=== PATIENT | male | born 1965 | race Caucasian/White ===

== ENCOUNTER 2022-08-25 20:31 | Inpatient (IN) | payer OTHER ==
[~2022-08-25] VITALS: Ht 182.9 cm; Wt 118.0 kg
[2022-08-25 20:46] VITALS: BP_SYST 120
--- NOTE | 2022-08-25 20:54 | NUR ---
# 18 gauge angiocath placed to LAC. Use of asceptic technique. Opsite placed over site. Blood return noted. Blood for lab drawn from site. Flushed with 10 cc of normal saline. No evidence of infiltration noted. Patient tolerated well.
[2022-08-25 21:03] LABS: BASOPHILS # (AUTO) 0.1 K/uL (0.0-0.2); BASOPHILS % (AUTO) 0.8 % (0.0-2.0); EOSINOPHILS # (AUTO) 0.1 K/uL (0.0-0.4); EOSINOPHILS % (AUTO) 1.1 % (0.0-4.0); HEMATOCRIT 28.1 % (36-54); HEMOGLOBIN 9.3 g/dL (14.0-18.0); LYMPHOCYTES # (AUTO) 0.7 K/uL (1.0-5.5); LYMPHOCYTES % (AUTO) 9.5 % (20.5-51.5); MEAN CORPUSCULAR HEMOGLOBIN 31 pg (27-31); MEAN CORPUSCULAR HGB CONC 33 % (32-36); MEAN CORPUSCULAR VOLUME 93 fL (79.0-98.0); MONOCYTES # (AUTO) 0.4 K/uL (0.0-1.0); MONOCYTES % (AUTO) 5.9 % (1.7-9.3); NEUTROPHILS # (AUTO) 5.8 K/uL (1.8-7.7); NEUTROPHILS % (AUTO) 82.7 % (40.0-70.0); PLATELET COUNT (AUTO) 161 K/uL (130-430); RED BLOOD CELL COUNT(AUTO) 3.01 MIL/uL (4.2-6.2); RED CELL DISTRIBUTION WIDTH 16.9 % (9.0-15.0); WHITE BLOOD COUNT (AUTO) 7.1 K/uL (4.8-10.8)
[2022-08-25 21:10] LABS: ANION GAP 15 (5-15); CHLORIDE 98 mmol/L (98-107); GLUCOSE 140 mg/dL (70-99); UREA NITROGEN, BLOOD 68 mg/dL (8-21)
[2022-08-25 21:12] LABS: GFR AFRICAN AMERICAN 40 mL/min (>90)
[2022-08-25 21:17] LABS: ALANINE AMINOTRANSFERASE 40 U/L (12-78); ALBUMIN 3.6 g/dL (3.4-4.8); ASPARTATE AMINOTRANSFERASE 63 U/L (10-37); TOTAL BILIRUBIN 0.6 mg/dL (0.0-1.0)
[2022-08-25] MEDS ORDERED: FUROSEMIDE 40 MG/4 ML VIAL IVP ONE (21:45)
--- NOTE | 2022-08-25 22:20 | NUR ---
Pt C/O SOB hx of COPD O2 sat 90 RM O2 supplement 2L provided Pt AOX4 VSS Verbally responsive Able to make need known Will continue to monitor
[2022-08-25] MEDS ORDERED: fentaNYL CITRATE/PF 100 MCG/2 ML AMP IVP ONE (22:30)
[2022-08-25] MEDS ORDERED: PROCHLORPERAZINE EDISYLATE 10 MG/2 ML VIAL IVP ONE (22:30)
--- NOTE | 2022-08-25 23:01 | NUR ---
Admit bed requested Patient will be admitted to care of . Admitted to unit. Tele Diagnosis CHF Inpatient (Yes or No) y Observation (Yes or No) N Orientation concerns or request close to nursing station (Yes or No) N Covid Status Pending On vent or bipap No Isolation requirements no Needs a sitter No From Home (Yes or if No enter name of facility) Yes Requires Dialysis (Yes or No) No Med Rec Completed (Yes of No) Yes
--- NOTE | 2022-08-25 23:42 | NUR ---
BS 115 made aware
--- NOTE | 2022-08-26 02:03 | NUR ---
Patient will be admitted to care of Dr. Nava [id number]. Belongings list completed. Complete and up to date summary report printed. SBAR report to be given at bedside with opportunity for questions.
[2022-08-26 02:29] VITALS: BP_SYST 120
[2022-08-26 03:00] VITALS: BP_SYST 120
[2022-08-26] MEDS ORDERED: ACETAMINOPHEN 325 MG TABLET PO PRN (03:00)
[2022-08-26] MEDS ORDERED: LORazepam 2 MG/ML VIAL IVP PRN (03:00)
[2022-08-26] MEDS ORDERED: ONDANSETRON HCL 4 MG/2 ML VIAL IVP PRN (03:00)
[2022-08-26] MEDS ORDERED: METF-518 PO (03:09)
[2022-08-26] MEDS ORDERED: ASPI-989 PO (03:09)
[2022-08-26] MEDS ORDERED: ASPI-1393 PO (03:09)
[2022-08-26] MEDS ORDERED: CARV25TA55 PO (03:09)
[2022-08-26] MEDS ORDERED: LISI20TA30 PO (03:09)
[2022-08-26] MEDS: IPRATROPIUM BROM 0.5 MG/2.5 ML VIAL.NEB (ATROVENT) INH SCH ×6 (03:14→23:31)
[2022-08-26] MEDS: ALBUTEROL SULFATE 0.083% 2.5 MG/3 ML VIAL.NEB INH SCH ×6 (03:14→23:31)
[2022-08-26] MEDS ORDERED: NORMAL SALINE 5 ML DISP.SYRIN IVF SCH (06:00)
[2022-08-26] MEDS: NORMAL SALINE 5 ML DISP.SYRIN IVF SCH ×2 (06:09→14:56)
--- NOTE | 2022-08-26 07:35 | NUR ---
MORNING ROUNDS: PATIENT SLEEPING DURING ROUNDS. O2 2L/NC,GOOD SATURATION. WITH MILD SHALLOW BREATHS ,SNORING . NO ACUTE DISTRESS. IV SALINE LOCK.
[2022-08-26 08:00] VITALS: BP_SYST 118
[2022-08-26 08:23] LABS: BASOPHILS % (AUTO) 0.6 % (0.0-2.0); EOSINOPHILS % (AUTO) 0.6 % (0.0-4.0); HEMATOCRIT 26.4 % (36-54); HEMOGLOBIN 8.8 g/dL (14.0-18.0); LYMPHOCYTES # (AUTO) 0.5 K/uL (1.0-5.5); LYMPHOCYTES % (AUTO) 8.8 % (20.5-51.5); MEAN CORPUSCULAR HEMOGLOBIN 31 pg (27-31); MEAN CORPUSCULAR HGB CONC 33 % (32-36); MEAN CORPUSCULAR VOLUME 93 fL (79.0-98.0); MONOCYTES # (AUTO) 0.2 K/uL (0.0-1.0); NEUTROPHILS # (AUTO) 4.7 K/uL (1.8-7.7); PLATELET COUNT (AUTO) 135 K/uL (130-430); RED BLOOD CELL COUNT(AUTO) 2.86 MIL/uL (4.2-6.2); RED CELL DISTRIBUTION WIDTH 16.4 % (9.0-15.0); WHITE BLOOD COUNT (AUTO) 5.4 K/uL (4.8-10.8)
[2022-08-26] MEDS ORDERED: METHYLPREDNISOLONE SOD SUCC 40 MG/ML VIAL IVP SCH (09:00)
[2022-08-26 09:39] LABS: CALCIUM 8.6 mg/dL (8.4-11.0); CREATININE 1.98 mg/dL (0.55-1.30)
[2022-08-26] MEDS: FUROSEMIDE 40 MG/4 ML VIAL IVP SCH ×2 (09:41→21:01)
--- NOTE | 2022-08-26 11:30 | NUR ---
BLOOD SUGAR: BLOOD SUGAR TAKEN,WITH INSULIN COVERAGE GIVEN PER SLIDING SCALE.
[2022-08-26] MEDS: INSULIN REGULAR, HUMAN 100 UNITS/ML, 3 ML VIAL (humuLIN R) SUBCUT PRN ×3 (11:59→22:12)
[2022-08-26] MEDS: OXYCODONE/ACETAMINOPHEN *10*mg/325 mg TABLET PO PRN ×2 (12:02→21:58)
[2022-08-26 12:04] VITALS: BP_SYST 137
--- NOTE | 2022-08-26 15:00 | NUR ---
HHN: BREATHING TREATMENT DURING ROUNDS.
[2022-08-26 16:00] VITALS: BP_SYST 139
--- NOTE | 2022-08-26 18:03 | NUR ---
PAGED: CALLED DR BOWEN FOR HIGH BLOOD SUGAR X2 AND SPOKE WITH FLORENCE ARAMBULA.
--- NOTE | 2022-08-26 19:23 | NUR ---
END OF SHIFT: NO ACUTE DISTRESS.MAINTAINED ON O2 2L/NC,GOOD SATURATION.CONTINUE TO MONITOR FOR SHORTNESS OF BREATH.
--- NOTE | 2022-08-26 19:30 | NUR ---
CHANGE OF SHIFT; endorsed by day shift with DX CHF exacerbation, HX COPD> no distress, call light at bedside.
[2022-08-26 20:00] VITALS: BP_SYST 139
--- NOTE | 2022-08-26 20:15 | NUR ---
NOTES: checked VS. pt. awake and alert. O2@ 2 l/nc, noted short of breath on exertion. with generalized edema. IV lock on left arm. moves all extremities. call light at bedside.
--- NOTE | 2022-08-26 21:00 | NUR ---
NOTES: medicated with Percocet po for c/o generalized pain.
[2022-08-26] MEDS: METHYLPREDNISOLONE SOD SUCC 40 MG/ML VIAL IVP SCH (21:02)
[2022-08-26] MEDS ORDERED: INSULIN REGULAR, HUMAN 100 UNITS/ML, 3 ML VIAL SUBCUT ONE (21:30)
--- NOTE | 2022-08-26 21:30 | NUR ---
NOTES: BS checked 421, called Dr. Nava with orders. consult with endocronologist in am. additionalregular insulin ordered plus Lantus.. Addendum: 08/26/22 at 2349 by Alla Deras RN late entry HIGH ALERT NOTE: Called [] back at [] identified within the medical roster to verify physician authenticity.reported BS 421 with additionalinsulin ordered.
[2022-08-26] MEDS: INSULIN GLARGINE 100 UNITS/ML, 10 ML VIAL SUBCUT SCH (22:01)
--- NOTE | 2022-08-27 00:15 | NUR ---
NOTES: made roumele and pt. sleeping. no distress.
[2022-08-27] MEDS: IPRATROPIUM BROM 0.5 MG/2.5 ML VIAL.NEB (ATROVENT) INH SCH ×6 (03:00→23:23)
[2022-08-27] MEDS: ALBUTEROL SULFATE 0.083% 2.5 MG/3 ML VIAL.NEB INH SCH ×6 (03:00→23:23)
--- NOTE | 2022-08-27 03:00 | NUR ---
NOTES: condition observed. remain sleeping.
--- NOTE | 2022-08-27 05:02 | NUR ---
CONSULTATION PAGED/CALLED Reason for Consultation: HYPERGLYCEMIA Person Who was Notified: LEFT VOICEMAIL MSG Consulting Physician: DR. 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 DEMETRIUS CHAVES
[2022-08-27] MEDS: NORMAL SALINE 5 ML DISP.SYRIN IVF SCH ×4 (05:50→20:41)
[2022-08-27 06:10] VITALS: BP_SYST 131
[2022-08-27] MEDS: INSULIN REGULAR, HUMAN 100 UNITS/ML, 3 ML VIAL (humuLIN R) SUBCUT PRN ×2 (06:37→11:45)
--- NOTE | 2022-08-27 06:44 | NUR ---
CLOSING NOTES; BS checked 268, with sliding scale coverage. pt. has been sleeping. O2 on. for further observation. consult with Dr. Nazario-Sayed this am. will endorse to incoming shift.call light at [facility].
--- NOTE | 2022-08-27 07:30 | NUR ---
MORNING ROUNDS: PATIENT FAST ASLEEP DURING ROUNDS.CALL LIGHT WITH IN REACH. BED LOCKED AT LOWEST POSITION. NOT IN ANY RESPIRATORY DISTRESS.
[2022-08-27 08:00] VITALS: BP_SYST 122
[2022-08-27 08:02] LABS: BASOPHILS % (AUTO) 0.2 % (0.0-2.0); EOSINOPHILS % (AUTO) 0.1 % (0.0-4.0); HEMATOCRIT 28.1 % (36-54); HEMOGLOBIN 9.3 g/dL (14.0-18.0); LYMPHOCYTES # (AUTO) 0.5 K/uL (1.0-5.5); LYMPHOCYTES % (AUTO) 9.4 % (20.5-51.5); MEAN CORPUSCULAR HEMOGLOBIN 30 pg (27-31); MEAN CORPUSCULAR HGB CONC 33 % (32-36); MEAN CORPUSCULAR VOLUME 92 fL (79.0-98.0); MONOCYTES # (AUTO) 0.4 K/uL (0.0-1.0); MONOCYTES % (AUTO) 6.8 % (1.7-9.3); NEUTROPHILS # (AUTO) 4.4 K/uL (1.8-7.7); NEUTROPHILS % (AUTO) 83.5 % (40.0-70.0); PLATELET COUNT (AUTO) 165 K/uL (130-430); RED BLOOD CELL COUNT(AUTO) 3.07 MIL/uL (4.2-6.2); RED CELL DISTRIBUTION WIDTH 16.1 % (9.0-15.0); WHITE BLOOD COUNT (AUTO) 5.3 K/uL (4.8-10.8)
[2022-08-27 08:34] LABS: CALCIUM 9.3 mg/dL (8.4-11.0); CREATININE 1.65 mg/dL (0.55-1.30); PHOSPHORUS 5.4 mg/dL (2.7-4.5)
[2022-08-27] MEDS: FUROSEMIDE 40 MG/4 ML VIAL IVP SCH ×2 (09:15→20:33)
[2022-08-27] MEDS: METHYLPREDNISOLONE SOD SUCC 40 MG/ML VIAL IVP SCH ×2 (09:15→20:33)
[2022-08-27] MEDS: INSULIN GLARGINE 100 UNITS/ML, 10 ML VIAL SUBCUT SCH ×2 (09:19→21:13)
--- NOTE | 2022-08-27 11:30 | NUR ---
BLOOD SUGAR: BLOOD SUGAR TAKEN,WITH INSULIN GIVEN PER SLIDING SCALE.NO PROBLEM.
[2022-08-27 12:00] VITALS: BP_SYST 134
[2022-08-27] MEDS: OXYCODONE/ACETAMINOPHEN *10*mg/325 mg TABLET PO PRN ×2 (12:01→22:47)
--- NOTE | 2022-08-27 12:01 | NUR ---
PAIN MEDS: C/O GENERALIZED PAIN AND DUE PO PERCOCET GIVEN PER PATIENT'S REQUEST.
[2022-08-27 16:00] VITALS: BP_SYST 131
[2022-08-27] MEDS ORDERED: ISOSORBIDE MONONITRATE 30 MG TAB.ER.24H PO ONE (16:00)
--- NOTE | 2022-08-27 16:15 | NUR ---
RN ROUNDS: PATIENT HAVING SNACKS. STABLE.
[2022-08-27] MEDS: INSULIN Lispro 100 UNITS/ML, 3 ML VIAL (humaLOG) SUBCUT SCH (17:09)
[2022-08-27] MEDS: INSULIN LISPRO SLIDING SCALE 100 UNITS/ML, 3 ML VIAL (humaLOG) SUBCUT PRN ×2 (17:11→21:21)
--- NOTE | 2022-08-27 17:20 | NUR ---
ENDOCRINE PAGED: SPOKE WITH DR DUNBAR-SAYROMEO AND RELAYED BLOOD SUGAR OF 418MG/DL.WITH ORDERS INCREASED LANTUS TO 25 UNITS SC BID.
--- NOTE | 2022-08-27 17:25 | NUR ---
HIGH ALERT NOTE: Called Dr. Nazario-Sayed back at his identified within the medical roster to verify physician authenticity.
--- NOTE | 2022-08-27 18:56 | NUR ---
EVENING ROUNDS: PATIENT ATE DINNER EXCELLENT. IV SALINE LOCK. CALL LIGHT WITH IN REACH. BED LOCKED AT LOWEST POSITION. NO DISTRESS.
--- NOTE | 2022-08-27 19:20 | NUR ---
CHANGE OF SHIFT: endorsed by day shift. in no acute distress. call light at bedside.
[2022-08-27 20:00] VITALS: BP_SYST 140
--- NOTE | 2022-08-27 20:15 | NUR ---
NOTES: pt.checked, having his breathing treatment. no shortness of breath, on room air. IV lock on left ac. 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 ambulates tothe restroom.
[2022-08-27] MEDS: lisinopriL 20 MG TABLET PO SCH (20:31)
[2022-08-27] MEDS: CARVEDILOL 25 MG TABLET (COREG) PO SCH (20:32)
[2022-08-27] MEDS ORDERED: INSULIN GLARGINE 100 UNITS/ML, 10 ML VIAL SUBCUT SCH (21:00)
--- NOTE | 2022-08-27 21:00 | NUR ---
NOTES: due medications given. pt.watching tv.
--- NOTE | 2022-08-27 22:00 | NUR ---
NOTES: BS checked 324, with sliding scale coverage. schedule for pain med for generalized pain. hot tea given per request.
--- NOTE | 2022-08-28 02:15 | NUR ---
NOTES: pt. been sleeping. no complaints noted. call light within reach.
[2022-08-28] MEDS: IPRATROPIUM BROM 0.5 MG/2.5 ML VIAL.NEB (ATROVENT) INH SCH ×6 (03:00→23:00)
[2022-08-28] MEDS: ALBUTEROL SULFATE 0.083% 2.5 MG/3 ML VIAL.NEB INH SCH ×6 (03:00→23:00)
--- NOTE | 2022-08-28 04:30 | NUR ---
NOTES: remain sleeping, condition unchanged.
[2022-08-28 06:00] VITALS: BP_SYST 118
--- NOTE | 2022-08-28 06:21 | NUR ---
CLOSING NOTES: AWAKENED EARLY FOR LAB DRAW. bs CHECKED 189 WITH SLIDING SCALE COVERAGE vs RECHECKED. ON ROOM AIR, O2 SAT 93%. FOR FURTHER OBSERVATION. WILL ENDORSE TO INCOMING SHIFT.
[2022-08-28 06:47] LABS: BASOPHILS % (AUTO) 0.5 % (0.0-2.0); EOSINOPHILS % (AUTO) 0.3 % (0.0-4.0); HEMATOCRIT 31.3 % (36-54); HEMOGLOBIN 10.5 g/dL (14.0-18.0); LYMPHOCYTES # (AUTO) 1.1 K/uL (1.0-5.5); LYMPHOCYTES % (AUTO) 16.5 % (20.5-51.5); MEAN CORPUSCULAR HEMOGLOBIN 30 pg (27-31); MEAN CORPUSCULAR HGB CONC 34 % (32-36); MEAN CORPUSCULAR VOLUME 90 fL (79.0-98.0); MONOCYTES # (AUTO) 0.6 K/uL (0.0-1.0); MONOCYTES % (AUTO) 8.6 % (1.7-9.3); NEUTROPHILS # (AUTO) 5.1 K/uL (1.8-7.7); NEUTROPHILS % (AUTO) 74.1 % (40.0-70.0); PLATELET COUNT (AUTO) 194 K/uL (130-430); RED BLOOD CELL COUNT(AUTO) 3.47 MIL/uL (4.2-6.2); RED CELL DISTRIBUTION WIDTH 16.4 % (9.0-15.0); WHITE BLOOD COUNT (AUTO) 6.9 K/uL (4.8-10.8)
[2022-08-28] MEDS: INSULIN Lispro 100 UNITS/ML, 3 ML VIAL (humaLOG) SUBCUT SCH ×3 (06:50→16:54)
[2022-08-28] MEDS: INSULIN LISPRO SLIDING SCALE 100 UNITS/ML, 3 ML VIAL (humaLOG) SUBCUT PRN ×3 (06:52→16:56)
[2022-08-28] MEDS: NORMAL SALINE 5 ML DISP.SYRIN IVF SCH ×3 (06:56→21:55)
[2022-08-28] MEDS: OXYCODONE/ACETAMINOPHEN *10*mg/325 mg TABLET PO PRN ×2 (06:57→21:52)
[2022-08-28 07:21] LABS: ALBUMIN 3.7 g/dL (3.4-4.8); CALCIUM 9.4 mg/dL (8.4-11.0); CREATININE 1.77 mg/dL (0.55-1.30); PHOSPHORUS 4.7 mg/dL (2.7-4.5); THYROID STIMULATING HORMONE 2.47 uIu/mL (0.34-4.82); TOTAL BILIRUBIN 0.6 mg/dL (0.0-1.0)
[2022-08-28 07:50] VITALS: BP_SYST 114
[2022-08-28] MEDS: METHYLPREDNISOLONE SOD SUCC 40 MG/ML VIAL IVP SCH ×2 (08:07→21:59)
[2022-08-28] MEDS: CARVEDILOL 25 MG TABLET (COREG) PO SCH ×2 (08:08→21:48)
[2022-08-28] MEDS: FUROSEMIDE 40 MG/4 ML VIAL IVP SCH ×2 (08:08→21:59)
[2022-08-28] MEDS: ISOSORBIDE MONONITRATE 30 MG TAB.ER.24H PO SCH (08:09)
[2022-08-28] MEDS: ASPIRIN 81 MG TABLET(ECOTRIN) PO SCH (08:09)
[2022-08-28] MEDS: INSULIN GLARGINE 100 UNITS/ML, 10 ML VIAL SUBCUT SCH ×2 (08:11→23:38)
[2022-08-28 11:25] VITALS: BP_SYST 104
[2022-08-28] MEDS ORDERED: GEMFIBROZIL 600 MG TABLET (LOPID) PO ONE (14:30)
[2022-08-28 17:21] VITALS: BP_SYST 113
--- NOTE | 2022-08-28 19:39 | NUR ---
PT HAS BEEN STABLE THE WHOLE SHIFT, BLOOD SUGAR STILL ERRATIC. ENDORSED TO NIGHT NURSE.
[2022-08-28 20:00] VITALS: BP_SYST 120
[2022-08-28] MEDS: lisinopriL 20 MG TABLET PO SCH (21:00)
[2022-08-28] MEDS: GEMFIBROZIL 600 MG TABLET (LOPID) PO SCH (21:00)
[2022-08-29] VITALS: BP_SYST 116
[2022-08-29] MEDS: ALBUTEROL SULFATE 0.083% 2.5 MG/3 ML VIAL.NEB INH SCH ×3 (03:00→11:00)
[2022-08-29] MEDS: IPRATROPIUM BROM 0.5 MG/2.5 ML VIAL.NEB (ATROVENT) INH SCH ×3 (03:00→11:00)
[2022-08-29 05:08] LABS: T4 (THYROXINE) 3.7 ug/dL (4.5-12.0)
[2022-08-29] MEDS: NORMAL SALINE 5 ML DISP.SYRIN IVF SCH ×2 (06:12→14:00)
[2022-08-29] MEDS: INSULIN Lispro 100 UNITS/ML, 3 ML VIAL (humaLOG) SUBCUT SCH ×2 (06:36→11:37)
[2022-08-29] MEDS: INSULIN LISPRO SLIDING SCALE 100 UNITS/ML, 3 ML VIAL (humaLOG) SUBCUT PRN ×2 (06:39→11:41)
[2022-08-29 07:10] LABS: BASOPHILS % (AUTO) 0.4 % (0.0-2.0); EOSINOPHILS % (AUTO) 0.1 % (0.0-4.0); HEMATOCRIT 36.4 % (36-54); HEMOGLOBIN 12.1 g/dL (14.0-18.0); LYMPHOCYTES # (AUTO) 0.7 K/uL (1.0-5.5); LYMPHOCYTES % (AUTO) 11.9 % (20.5-51.5); MEAN CORPUSCULAR HEMOGLOBIN 30 pg (27-31); MEAN CORPUSCULAR HGB CONC 33 % (32-36); MEAN CORPUSCULAR VOLUME 90 fL (79.0-98.0); MONOCYTES # (AUTO) 0.3 K/uL (0.0-1.0); MONOCYTES % (AUTO) 4.3 % (1.7-9.3); NEUTROPHILS % (AUTO) 83.3 % (40.0-70.0); PLATELET COUNT (AUTO) 221 K/uL (130-430); RED BLOOD CELL COUNT(AUTO) 4.05 MIL/uL (4.2-6.2); RED CELL DISTRIBUTION WIDTH 16.4 % (9.0-15.0)
[2022-08-29 07:22] LABS: CALCIUM 9.6 mg/dL (8.4-11.0); CREATININE 1.59 mg/dL (0.55-1.30); PHOSPHORUS 5.1 mg/dL (2.7-4.5)
[2022-08-29 08:00] VITALS: BP_SYST 132
[2022-08-29] MEDS: INSULIN GLARGINE 100 UNITS/ML, 10 ML VIAL SUBCUT SCH (10:11)
[2022-08-29] MEDS: ISOSORBIDE MONONITRATE 30 MG TAB.ER.24H PO SCH (10:12)
[2022-08-29] MEDS: GEMFIBROZIL 600 MG TABLET (LOPID) PO SCH (10:12)
[2022-08-29] MEDS: CARVEDILOL 25 MG TABLET (COREG) PO SCH (10:12)
[2022-08-29] MEDS: FUROSEMIDE 40 MG/4 ML VIAL IVP SCH (10:12)
[2022-08-29] MEDS: METHYLPREDNISOLONE SOD SUCC 40 MG/ML VIAL IVP SCH (10:12)
[2022-08-29] MEDS: ASPIRIN 81 MG TABLET(ECOTRIN) PO SCH (10:12)
[2022-08-29 11:33] VITALS: BP_SYST 105
[2022-08-29] MEDS: OXYCODONE/ACETAMINOPHEN *10*mg/325 mg TABLET PO PRN (11:48)
[2022-08-29] MEDS ORDERED: INSU100V9 SUBCUT (12:57)
[2022-08-29] MEDS ORDERED: FURO-149 PO (12:57)
[2022-08-29] MEDS ORDERED: LOP600 PO (12:57)
[2022-08-29] MEDS ORDERED: ISOS30TA85 PO (12:57)
[2022-08-29] MEDS ORDERED: INSU100V SUBCUT (12:57)
[2022-08-29] MEDS ORDERED: CHOLECALCIFEROL (VITAMIN D3) 2,000 UNIT TABLET PO ONE (14:00)
[2022-08-29 14:20] VITALS: BP_SYST 105
[2022-08-29 16:14] VITALS: BP_SYST 105
[2022-08-29 16:55] VITALS: BP_SYST 105
[2022-08-29] MEDS ORDERED: INSULIN Lispro 100 UNITS/ML, 3 ML VIAL (humaLOG) SUBCUT SCH (17:00)
[2022-08-29] MEDS ORDERED: INSULIN GLARGINE 100 UNITS/ML, 10 ML VIAL SUBCUT SCH (21:00)
[2022-08-30] MEDS ORDERED: CHOLECALCIFEROL (VITAMIN D3) 2,000 UNIT TABLET PO SCH (09:00)
== END 2022-08-29 16:40 | disposition home or self-care (01) | DRG 291 ==
LOC: SED 20:31 → STU 22:51 → SMU 08-28 12:17
PROVIDERS: ADMIT Internal Medicine; ATTEND Internal Medicine
DX: I13.0 Hypertensive heart and chronic kidney disease with heart failure and stage 1 through stage 4 chronic kidney disease, or unspecified chronic kidney disease (principal); I50.31 Acute diastolic (congestive) heart failure; J96.01 Acute respiratory failure with hypoxia; N17.0 Acute kidney failure with tubular necrosis; J44.1 Chronic obstructive pulmonary disease with (acute) exacerbation; E11.65 Type 2 diabetes mellitus with hyperglycemia; E11.22 Type 2 diabetes mellitus with diabetic chronic kidney disease; D64.9 Anemia, unspecified; E78.1 Pure hyperglyceridemia; E78.5 Hyperlipidemia, unspecified; E83.39 Other disorders of phosphorus metabolism; I25.10 Atherosclerotic heart disease of native coronary artery without angina pectoris; E83.41 Hypermagnesemia; I50.9 Heart failure, unspecified; N18.32 Chronic kidney disease, stage 3b; Z20.822 Contact with and (suspected) exposure to COVID-19; T38.0X5A Adverse effect of glucocorticoids and synthetic analogues, initial encounter; Z79.82 Long term (current) use of aspirin; Z79.4 Long term (current) use of insulin; Z88.8 Allergy status to other drugs, medicaments and biological substances; Z79.899 Other long term (current) drug therapy; Z95.1 Presence of aortocoronary bypass graft; Z79.84 Long term (current) use of oral hypoglycemic drugs; Z92.89 Personal history of other medical treatment; Y92.89 Other specified places as the place of occurrence of the external cause
CPT/HCPCS: 36415; 71045; 76770; 80048; 80053; 82306; 83735; 83880; 84100; 84436; 84443; 84484; 85025; 93005; 93306; 93880; 94640; 94760; 96374; 96375; 99291; G0378; J0780; J1030; J1815; J1940; J3010; J7613